=== PATIENT | female | born 2000 | race Caucasian/White ===

== ENCOUNTER 2020-04-16 10:31 | Emergency (ER) | payer BC ==
[~2020-04-16] VITALS: Ht 154.9 cm; Wt 65.9 kg
[2020-04-16 10:44] VITALS: TEMP 98.2
[2020-04-16] MEDS ORDERED: CLEOCIN HCL300 MG PO (11:14)
[2020-04-16] MEDS ORDERED: IBU800 M1 PO (11:14)
[2020-04-16 11:24] VITALS: BP 110/68; PULSE 71
== END 2020-04-16 11:39 | disposition home or self-care (01) ==
LOC: COL.ER 10:31
DX: R68.84 Jaw pain (principal)